=== PATIENT | male | born 1955 | race Caucasian/White ===

== ENCOUNTER 2016-12-25 13:54 | Emergency (ER) | payer BC ==
[~2016-12-25] VITALS: Ht 175.3 cm; Wt 83.9 kg
[2016-12-25 14:40] VITALS: BP 152/74
== END 2016-12-25 14:42 | disposition home or self-care (01) ==
LOC: ER 13:58
DX: H60.12 Cellulitis of left external ear (principal); I10 Essential (primary) hypertension; E78.00 Pure hypercholesterolemia, unspecified
CPT/HCPCS: A4606; Z7610